=== PATIENT | female | born 1975 | race Caucasian/White ===

== ENCOUNTER 2023-05-30 17:33 | Emergency (ER) | payer SELFPAY ==
[2023-05-30 17:35] VITALS: BP 147/77; PULSE 103; RESP 18; TEMP 36.3; O2SAT 98; O2SAT 99; BMI 33.8
--- NOTE | 2023-05-30 17:48 | EKG12_ITS ---
Test Reason : CP Blood Pressure : / mmHG Vent. Rate : 096 BPM Atrial Rate : 096 BPM P-R Int : 168 ms QRS Dur : 080 ms QT Int : 356 ms P-R-T Axes : 034 027 001 degrees QTc Int : 449 ms Normal sinus rhythm Nonspecific T wave abnormality Abnormal ECG Confirmed by ADITI SANDOVAL, MARLENI ([id number]), assistant production editor HANNAH BUTLER ([id number]) on 06/07/2023 7:08:23 AM Referred By: FRANK/KATHERIN Confirmed By:DREW PENNINGTON MD
--- NOTE | 2023-05-30 17:50 | EX.ED.DYSGE1 ---
HPI History of Present Illness Chief Complaint: Chest Pain Informant: patient Onset/Context/Timing Onset: Today Narrative Narrative: Patient presents secondary to an episode of chest tightness and shortness of breath. She woke from a nap around 430 this afternoon and had a 10-minute episode of chest tightness and shortness of breath. She is reports a history of anxiety and thinks it is likely related to anxiety but is unsure. She states symptoms resolved after about 10 minutes when she started thinking about something different. She has noted more frequent anxiety and panic attacks recently with more frequent episodes of chest tightness. She denies any personal or family history of heart disease. [facility] Medical History (Updated 05/30/23 @ 21:[address] Shruthi Jarvis MD) Hypokalemia Allergy/AdvReac Type Severity Reaction Status Date / Time No Known Allergies Allergy Verified 05/30/23 17:35 Social History Smoking Status: Never smoker ROS ROS ED Constitutional Constitutional ED: Denies chills or fever(s) Eyes Eyes: Denies discharge from eye(s) ENT ENT ED: Denies discharge from eye(s), rhinorrhea or sore throat Cardiovascular Cardiovascular: Reports chest pain; Denies palpitations or racing heartbeat Respiratory/Chest Respiratory/Chest: Reports dyspnea; Denies cough Gastrointestinal Gastrointestinal: Denies abdominal pain, nausea or vomiting Genitourinary Genitourinary ED: Denies dysuria Musculoskeletal Musculoskeletal: Denies back pain or extremity pain Integumentary Denies Abrasions or rash Neurologic Neurologic: Denies headache(s) or weakness Psychiatric Psychiatric: Reports anxiety; Denies depression Allergic/Immunologic Allergic/Immunologic ED: Denies lip swelling or urticaria EXAM Physical Exam Const Vital Signs: 05/30/23 17:35 05/30/23 18:11 05/30/23 17:35 Temperature 97.4 F L Temperature Source Temporal Pulse Rate 103 H Respiratory Rate 18 Respiratory Effort Normal Non-Labored Respiratory Depth Respiratory Pattern Blood Pressure 147/77 H Blood Pressure Mean 100 Pulse Ox 99 Oxygen Delivery Method Room Air Room Air 05/30/23 17:35 05/30/23 18:35 05/30/23 19:00 Temperature Temperature Source Pulse Rate 83 85 Respiratory Rate 17 Respiratory Effort Normal Non-Labored Respiratory Depth Normal Respiratory Pattern Normal Blood Pressure Blood Pressure Mean Pulse Ox 98 Oxygen Delivery Method Room Air Room Air 05/30/23 21:15 Temperature Temperature Source Pulse Rate 76 Respiratory Rate 15 Respiratory Effort Respiratory Depth Respiratory Pattern Blood Pressure 137/82 H Blood Pressure Mean 100 Pulse Ox 99 Oxygen Delivery Method Positive well nourished and well developed General Appearance ED: well developed HEENT Reports normocephalic and head/scalp atraumatic Eyes PERRL and EOMs intact bilaterally Neck supple Chest Wall inspection of chest normal and palpation of chest normal Resp normal respiratory effort and clear to auscultation bilaterally Cardio regular rate and regular rhythm GI normal to inspection, nondistended, normoactive bowel sounds Palpation: soft Extremity normal to inspection Neuro oriented x3 and no sensory deficits noted Sensorium / Orientation: alert Motor Exam: strength 5/5 throughout Psych mental status grossly normal Skin no rashes or lesions noted MDM MDM MDM Narrative Medical decision making narrative: Patient did take 1 baby aspirin prior to arrival. She was given 3 additional baby aspirin here. Patient placed on welfare director. IV line established. Labwork obtained to evaluate for leukocytosis, anemia, and electrolyte derangement. Chest x-ray obtained to evaluate for acute lung pathology, cardiac size, or mediastinal abnormality. EKG obtained to evaluate for cardiac arrhythmia/ischemia. History & Record Review Discussion w/independent historian: Patient and Significant other Lab Data Attestation: I reviewed the patient's lab results. Labs: Laboratory Results - last 24 hr 05/30/23 05/30/23 18:00 20:09 WBC 6.7 RBC 4.80 Hgb 13.0 Hct 40.0 MCV 83.3 MCH 27.1 MCHC 32.5 RDW Std Deviation 45.9 H RDW Coeff of Alexys 15.1 H Plt Count 302 MPV 9.8 Immature Gran % (Auto) 0.300 Neut % (Auto) 50.0 Lymph % (Auto) 36.3 [place] % (Auto) 9.8 Eos % (Auto) 3.0 Baso % (Auto) 0.6 Absolute Neuts (auto) 3.3 Absolute Lymphs (auto) 2.42 Nucleated RBC % 0 D-Dimer Quant (PE/DVT) 0.38 Sodium 140 Potassium 3.9 Chloride 108 H Carbon Dioxide 25.0 Anion Gap 7 BUN 15 Creatinine 1.06 H Estim Creat Clear Calc 60.76 Est GFR (MDRD) Af Amer 71 Est GFR (MDRD) Non-Af 59 L BUN/Creatinine Ratio 14.2 Glucose 120 H Calcium 8.8 Troponin I High Sens 4 5 Radiography Chest X-Ray - ED: 1 View, Read by ED Physician, Normal, Heart, Lungs and Mediastinum Diagnostic Testing: Clinical Impression(s) from Imaging Studies Chest X-Ray 05/30/23 18:17 IMPRESSION: No radiographic evidence of acute cardiopulmonary disease. Electronically Signed: Reinaldo Gardner MD at 18:40 EST , EKG Initial EKG: Attestation: I personally reviewed and interpreted this EKG as follows: Interpretation: Sinus Rhythm (Sinus at 96 with nonspecific T wave flattening. No acute ischemia.) Treatment and Re-Evaluation :: CBC was normal white count 6.7 with hemoglobin of 13. Chemistry studies unremarkable with normal potassium and renal function. Initial troponin is 4 with a repeat troponin of 5. Portable chest x-ray per my interpretation reveals no acute abnormalities. EKG is sinus rhythm with no acute ST changes. On repeat evaluation patient resting comfortably. She has not had any further symptoms while in the emergency room. She is reassured with the work-up and is referred to local PCP to establish care. Return instructions are given. Discharge Plan Triage Chief Complaint: Chest Pain Other Complaint: Shortness of Breath ED Provider: Shruthi Jarvis Dx/Rx/DC Orders Clinical Impression: Chest pain Instructions: ED Chest Pain, Noncardiac Primary Care Provider: Care Physician,No Primary Referrals: Trip Maher DO [Med Staff - Catalog Specialist] - As Needed Care Physician,No Primary [Primary Care Provider] - Disposition Disposition: Home, Self Care Discharge Date/Time: 05/30/23 21:16
--- NOTE | 2023-05-30 17:53 | NURSING ---
NO OLD EKGS
[2023-05-30] MEDS: Aspirin 81 MG TAB.CHEW 243 MG PO (18:03)
[2023-05-30 18:09] LABS: Absolute Lymphocyte Count 2.42 X10^3/uL (0.83-4.51); Absolute Neutrophil Count 3.3 X10^3/uL (2.0-7.7); Basophil# 0.04 X10^3/uL; Basophil% 0.6 % (0-1); Lymphocyte # 2.42 X10^3/ul (0.83-4.51); Lymphocyte % 36.3 % (19-41); Mean Corp Hgb Conc 32.5 g/dL (32-36); Mean Corpuscular Hgb 27.1 pg (27.0-32.0); Mean Corpuscular Volume 83.3 fL (81-99); Mean Platelet Vol. 9.8 fl (6.2-12.0); Monocyte# 0.65 X10^3/uL; Monocyte% 9.8 % (0-10); NRBC Flagged by Analyzer 0 % (0-5); Neutrophil # 3.33 X10^3/uL (2.7-7.7); Platelet Count 302 K/mm3 (150-450); RBC Distribution Width CV 15.1 % (11.6-14.6); RBC Distribution Width SD 45.9 fl (35.1-43.9); White Blood Count 6.7 K/mm3 (4.4-11.0)
--- NOTE | 2023-05-30 18:17 | RAD_ITS ---
EXAM: XR CHEST, 1 VIEW CLINICAL INDICATION: chest pain TECHNIQUE: Frontal view of the chest. COMPARISON: No relevant prior studies available. FINDINGS: LUNGS AND PLEURAL SPACES: Unremarkable. No consolidation or edema. No pneumothorax. No effusion. HEART: Unremarkable. Cardiac silhouette not enlarged. MEDIASTINUM: Central airways and mediastinal contour are unremarkable. BONES/JOINTS: Unremarkable. SOFT TISSUES: Unremarkable. RAD/Chest 1 View (Portable) IMPRESSION: No radiographic evidence of acute cardiopulmonary disease. Electronically Signed: Reinaldo Gardner MD at 18:40 EST ,
[2023-05-30 18:20] LABS: D-Dimer Quantitative (DVT/PE) 0.38 FEU/ug/m (0.27-0.49)
[2023-05-30 18:30] LABS: Anion Gap 7 (5-15); BUN 15 mg/dL (7-18); BUN/Creat Ratio 14.2 RATIO (10-20); Calcium,Total 8.8 mg/dL (8.5-10.1); Chloride 108 mmol/L (98-107); Creatinine, Serum 1.06 mg/dL (0.55-1.02); EST Glomerular Filtration Rate 59 mL/min (>60); Est Glom Filt Rate - Afr Amer 71 mL/min (>60); Estimated Creatinine Clearance 60.76 ml/min; Glucose 120 mg/dL (74-106); Potassium 3.9 mmol/L (3.5-5.1); Sodium Level 140 mmol/L (136-145); Troponin-I HS (w/2H Reflex) 4 pg/mL (3.0-54.0)
[2023-05-30 18:35] VITALS: PULSE 83
[2023-05-30 19:00] VITALS: PULSE 85; RESP 17; O2SAT 98
[2023-05-30 20:06] LABS: Reflex Troponin-HS? (from REC) Y
[2023-05-30 20:33] LABS: Troponin-I HS 5 pg/mL (3.0-54.0)
[2023-05-30 21:15] VITALS: BP 137/82; PULSE 76; RESP 15; O2SAT 99
== END 2023-05-30 21:16 | disposition home or self-care (01) ==
PROVIDERS: Emergency Provider Emergency Medicine; Visit Provider Emergency Medicine
DX: R07.9 Chest pain, unspecified (principal); R06.02 Shortness of breath
CPT/HCPCS: 71045; 80048; 84484; 85025; 85379; 93005; 99285; A4216

== ENCOUNTER 2023-09-20 03:55 | Emergency (ER) | payer SELFPAY ==
[2023-09-20 03:57] VITALS: BP 137/72; PULSE 81; RESP 16; TEMP 36.6; O2SAT 98; BMI 33.7
--- NOTE | 2023-09-20 04:12 | EDS_ITS ---
HPI History of Present Illness Chief Complaint: Other, Pain/Inj Informant: patient Narrative Narrative: Patient presents with an area in her left arm that is a little swollen and sore. She just noticed it this morning. Nothing really makes it better or worse but it is a little sore to press. No chest pain shortness of breath. No numbness tingling. No fevers or chills. She knows of no trauma or repetitive motion that she has had. She is right-hand dominant. She has had no recent travel surgery immobilization or history of DVT PE. She is on no medicines. She cannot think of anything that she did that may have caused this. [facility] Medical History Hypokalemia Home Medications cephalexin 500 mg capsule 500 mg PO Q6 #40 CAPSULES 09/20/23 [Rx Last Taken Unknown] Allergy/AdvReac Type Severity Reaction Status Date / Time No Known Allergies Allergy Verified 05/30/23 17:35 Social History Smoking Status: Never smoker ROS ROS ED Constitutional Constitutional ED: Denies chills or fever(s) Cardiovascular Cardiovascular: Denies chest pain, palpitations or racing heartbeat Respiratory/Chest Respiratory/Chest: Denies cough or dyspnea Gastrointestinal Gastrointestinal: Denies abdominal pain, nausea or vomiting Musculoskeletal Musculoskeletal: Reports myalgias; Denies back pain Integumentary Denies Abrasions or rash Neurologic Neurologic: Denies headache(s), paresthesias or weakness Hematologic/Lymphatic Hematologic/Lymphatic: Denies easy bleeding, easy bruising or lymphadenopathy Allergic/Immunologic Allergic/Immunologic ED: Denies urticaria EXAM Physical Exam Narrative Exam Narrative: General: Patient awake alert no acute distress easily walked back to the room. HEENT shows no trauma Cardiorespiratory shows easy unlabored breathing, regular heart rate and oxygen level is normal at 98% on room air showing no hypoxia. Left upper extremity shows a little bit of an area on the posterior aspect over left tricep that does appear to be a little bit full. She states it feels a little bit like a bruise. I can feel a slight area that swollen. It does feel a little bit warm. But it is not at all fluctuant. There is absolutely no redness over this at all. No skin changes. No proximal lymphadenopathy. There is no pain with motion of any joint including shoulder elbow wrist or hand. The veins are not at all distended. There is no cord or tenderness along the veins in the medial aspect of the arm. Distal pulses are great. Sensation is normal. Const Vital Signs: 09/20/23 03:57 09/20/23 04:03 09/20/23 04:20 Temperature 98 F 98 F Temperature Source Oral Pulse Rate 81 80 Respiratory Rate 16 16 Respiratory Effort Normal Respiratory Pattern Normal Blood Pressure 137/72 H 123/56 H Blood Pressure Mean 93 78 Pulse Ox 98 98 Oxygen Delivery Method Room Air MDM MDM MDM Narrative Medical decision making narrative: Clinically this feels a little bit like a bruised area but I do not have a history consistent with that. I explained to the patient that I do not have ability to do ultrasound right now. She is not tachypneic tachycardic or hypo xic. She has no known risk factor for DVT or PE. We will get an outpatient ultrasound but I do not think this needs to be done acutely. They should be able to get it later this morning though. This could be an early cellulitis. I do not see any breaks in the skin that would cause this but the area is a little bit sore and slightly swollen and slightly warm. I will write for antibiotics. I explained that if she develops any more swelling redness fevers she should start this. We will get the ultrasound later this morning. If that is positive she would be sent back here likely for treatment. Any other concerns or changes she is welcome to return or have close follow-up with her primary physician to check for resolution. Discharge Plan Triage Chief Complaint: Other, Pain/Inj ED Provider: Alan Ashraf Dx/Rx/DC Orders Clinical Impression: Left arm swelling Instructions: ED Cellulitis Prescriptions: New cephalexin [cephalexin] 500 mg capsule 500 mg PO Q6 Qty: 40 0RF Other Ambulatory Orders: Venous Duplex US, Unilateral (Stat) Facility: [facility] - Location: [facility] Ordered By: Dr. Alan Ashraf Primary Care Provider: Care Physician,No Primary Referrals: Nikhil Matos MD [Med Staff - Active Staff] - 3-5 Days if not improving Care Physician,No Primary [Primary Care Provider] - Disposition Disposition: Home, Self Care Discharge Date/Time: 09/20/23 04:21
[2023-09-20 04:20] VITALS: BP 123/56; PULSE 80; RESP 16; TEMP 36.6; O2SAT 98
== END 2023-09-20 04:21 | disposition home or self-care (01) ==
LOC: ED 04:14
PROVIDERS: Emergency Provider Emergency Medicine; Visit Provider Emergency Medicine
DX: M79.89 Other specified soft tissue disorders (principal)
CPT/HCPCS: 99282